=== PATIENT | female | born 1985 | race Two or more races ===

== ENCOUNTER 2018-01-08 21:00 | Emergency (ER) | payer OTHER ==
[~2018-01-08] VITALS: Ht 152.4 cm; Wt 45.4 kg
== END 2018-01-08 22:43 | disposition home or self-care (01) ==
LOC: ER 21:00
DX: N39.0 Urinary tract infection, site not specified (principal)

== ENCOUNTER 2018-04-20 21:01 | Emergency (ER) | payer OTHER ==
[~2018-04-20] VITALS: Ht 152.4 cm; Wt 54.4 kg
== END 2018-04-20 22:16 | disposition home or self-care (01) ==
LOC: ER 21:01
DX: R00.0 Tachycardia, unspecified (principal); F06.4 Anxiety disorder due to known physiological condition